=== PATIENT | female | born 1955 | race Caucasian/White ===

== ENCOUNTER → 2023-11-26 | Outpatient (CLI) | payer MEDICARE, OTHER, SELFPAY ==
--- NOTE | 2023-11-26 16:40 | RAD_ITS ---
STUDY: X-RAY CHEST REASON FOR EXAM: Female, 68 years old. Shortness of breath. TECHNIQUE: Frontal and lateral views of the chest. COMPARISON: None. FINDINGS: Low volume inspiration with elevation of the right hemidiaphragm and with bibasilar atelectasis, right greater than left. There is no demonstrated pleural abnormality. Borderline cardiomegaly unchanged. Normal mediastinum and ana. Normal visualized pulmonary arteries. Mild aortic tortuosity. Thoracic osteopenia with diffuse spondylosis. Normal visualized ribs, clavicles, and shoulders. No abnormality of the visualized soft tissue structures of the upper abdomen. RAD/Chest PA and Lateral IMPRESSION: Borderline cardiomegaly, low volume inspiration with right lower lobe basilar atelectasis. No active or acute cardiopulmonary disease. Electronically Signed: Geovanny Paul MD at 10:34 EDT ,
== END | disposition home or self-care (01) ==
LOC: MTRAD 16:38
PROVIDERS: PCP Nurse Practitioner Family; Referring Provider Internal Medicine Pulmonary Disease; Visit Provider Internal Medicine Pulmonary Disease
DX: R06.02 Shortness of breath (principal)
CPT/HCPCS: 71046

== ENCOUNTER → 2024-01-02 | Outpatient (CLI) | payer MEDICARE, OTHER, SELFPAY ==
--- NOTE | 2024-01-02 11:03 | RAD_ITS ---
PROCEDURE: Sniff test. DATE OF EXAMINATION: January 02, 2024. INDICATION: Female, 68 years old. Shortness of breath. Dyspnea on exertion. FLUOROSCOPY TIME (if supplied): (22 seconds) minutes/seconds. RAD/Chest Sniff Test Fluoro Only IMPRESSION: There is normal excursions of the right and left hemidiaphragms. Electronically Signed: Ramos Claudio MD at 13:42 EDT ,
== END | disposition home or self-care (01) ==
LOC: RAD 10:59
PROVIDERS: PCP Nurse Practitioner Family; Referring Provider Internal Medicine Pulmonary Disease; Visit Provider Internal Medicine Pulmonary Disease
DX: J98.6 Disorders of diaphragm (principal)
CPT/HCPCS: 76000

== ENCOUNTER → 2024-02-04 | Outpatient (CLI) | payer MEDICARE, OTHER, SELFPAY | END | disposition home or self-care (01) | LOC: PSN 07:51 | PROVIDERS: PCP Nurse Practitioner Family; Referring Provider Internal Medicine Pulmonary Disease; Visit Provider Internal Medicine Pulmonary Disease | DX: R06.02 Shortness of breath (principal) | CPT/HCPCS: 94060; 94726; 94729; 97162 ==

== ENCOUNTER → 2024-02-09 | Outpatient (CLI) | payer MEDICARE, OTHER, SELFPAY ==
[2024-02-09 13:02] VITALS: PULSE 101; PULSE 104; PULSE 76; PULSE 80; PULSE 86; PULSE 94; PULSE 99; O2SAT 91; O2SAT 92; O2SAT 93; O2SAT 94; O2SAT 95; O2SAT 97
--- NOTE | 2024-02-12 09:49 | PCM.PSN.6M ---
PSN 6 Minute Walk Test 6 Minute Walk Test 6 Minute Walk Test: 6 Minute Walk Test PSN:6-Minute Walk Test Start: 02/09/24 13:02 Freq: Status: Active Protocol: [id number].6MINW Document 02/09/24 13:02 ANDRIA (Rec: 02/09/24 13:04 ANDRIA [id number]) 6 Minute Walk Test Date Performed 02/09/24 Time Performed 12:00 Height 5 ft 4 in Weight: 307 lb Weight in Pounds 307.[address]: Mayco Vyas V Assistive device used: None Pre-test Oxygen Delivery Method Room Air Pulse Ox (%) 97 Pulse Rate (60-100 beats/min) 76 Dyspnea Kirstin Scale (0-10) 0 Exertion Kirstin Scale (6-20) 6 1st minute Oxygen Delivery Method Room Air Pulse Ox (%) 95 Pulse Rate (60-100 beats/min) 86 2nd minute Oxygen Delivery Method Room Air Pulse Ox (%) 94 Pulse Rate (60-100 beats/min) 94 3rd minute Oxygen Delivery Method Room Air Pulse Ox (%) 93 Pulse Rate (60-100 beats/min) 99 Number of Rests Taken 1 4th minute Oxygen Delivery Method Room Air Pulse Ox (%) 92 Pulse Rate (60-100 beats/min) 94 5th minute Oxygen Delivery Method Room Air Pulse Ox (%) 91 Pulse Rate (60-100 beats/min) 101 H 6th minute Oxygen Delivery Method Room Air Pulse Ox (%) 91 Pulse Rate (60-100 beats/min) 104 H Dyspnea Kirstin Scale (0-10) 5 Exertion Kirstin Scale (6-20) 14 Post-test Oxygen Delivery Method Room Air Pulse Ox (%) 97 Pulse Rate (60-100 beats/min) 80 Full Laps Walked 10 Partial Lap, Number of Tiles Walked 0 Total Distance Walked (ft) 590 Interpretation Interpretation: The patient ambulated 590 feet over the course of 6 minutes beginning on room air without assistive devices or breaks. Pretesting oxygen saturation was noted to be 97% on room air. With ambulation, the [place] oxygen saturation was 91%. This testing indicated the presence of impaired walk distance and significant exertional oxygen desaturation, consistent with a pulmonary limitation to exercise tolerance. Recommendations Recommendations: There is no indication for the use of supplemental oxygen at this time. However, post interval follow-up was recommended, given the degree of oxygen desaturation noted during the study.
== END | disposition home or self-care (01) ==
LOC: PSN 11:42
PROVIDERS: PCP Nurse Practitioner Family; Referring Provider Internal Medicine Pulmonary Disease; Visit Provider Internal Medicine Pulmonary Disease
DX: R06.02 Shortness of breath (principal)
CPT/HCPCS: 94618

== ENCOUNTER → 2024-03-24 | Outpatient (CLI) | payer MEDICARE, OTHER, SELFPAY ==
[2024-03-24 17:41] LABS: BNP,B-Type NATRIURETIC PEPTIDE 111.5 pg/mL (0-100)
== END | disposition home or self-care (01) ==
LOC: LAB 16:18
PROVIDERS: PCP Nurse Practitioner Family; Referring Provider Internal Medicine Cardiovascular Disease; Visit Provider Internal Medicine Cardiovascular Disease
DX: R06.02 Shortness of breath (principal); R00.2 Palpitations
CPT/HCPCS: 36415; 83880; 84443

== ENCOUNTER → 2024-07-08 | Outpatient (CLI) | payer MEDICARE, OTHER, SELFPAY ==
[2024-07-08 15:30] LABS: Absolute Lymphocyte Count 1.68 X10^3/uL (0.83-4.51); Absolute Neutrophil Count 5.2 X10^3/uL (2.0-7.7); Basophil# 0.02 X10^3/uL; Basophil% 0.3 % (0-1); Eosinophil# 0.45 X10^3/uL; Eosinophils% 5.6 % (0-5); Hematocrit 34.4 % (37-47); Hemoglobin 10.8 g/dL (12.0-15.0); Lymphocyte # 1.68 X10^3/ul (0.83-4.51); Mean Corp Hgb Conc 31.4 g/dL (32-36); Mean Corpuscular Volume 92.2 fL (81-99); Mean Platelet Vol. 8.9 fl (6.2-12.0); Monocyte# 0.57 X10^3/uL; Monocyte% 7.1 % (0-10); NRBC Flagged by Analyzer 0 % (0-5); Neutrophil # 5.24 X10^3/uL (2.7-7.7); Neutrophil % 65.5 % (47-70); Platelet Count 220 K/mm3 (150-450); RBC Distribution Width CV 15.9 % (11.6-14.6); RBC Distribution Width SD 53.8 fl (35.1-43.9); Red Blood Count 3.73 M/mm3 (4.2-5.4)
[2024-07-08 15:39] LABS: Prothrombin Time (Protime)PT. 13.6 SECONDS (11.7-14.9)
[2024-07-08 15:40] LABS: Partial Thromboplast Time 25.7 Seconds (24.1-36.2)
[2024-07-08 16:24] LABS: Anion Gap 5 (5-15); BUN 29 mg/dL (7-18); BUN/Creat Ratio 22.5 RATIO (10-20); Calcium,Total 8.9 mg/dL (8.5-10.1); Chloride 104 mmol/L (98-107); Creatinine, Serum 1.29 mg/dL (0.55-1.02); EST Glomerular Filtration Rate 44 mL/min (>60); Est Glom Filt Rate - Afr Amer 53 mL/min (>60); Glucose 190 mg/dL (74-106); Potassium 3.7 mmol/L (3.5-5.1); Sodium Level 140 mmol/L (136-145)
== END | disposition home or self-care (01) ==
LOC: LAB 15:00
PROVIDERS: Referring Provider Physician Assistant Medical; Visit Provider Physician Assistant Medical
DX: R06.02 Shortness of breath (principal)
CPT/HCPCS: 36415; 80048; 85025; 85610; 85730

== ENCOUNTER 2024-07-20 06:30 | Day surgery (SDC) | payer MEDICARE, OTHER, SELFPAY ==
--- NOTE | 2024-07-17 06:18 | RAD_ITS ---
STUDY: XR Chest 2 Views 07/17/2024 6:22 AM REASON FOR EXAM: Female, 69 years old. [place] COMPARISON: 11/26/2023 TECHNIQUE: XR Chest 2 Views FINDINGS: There is no demonstrated pleural abnormality. Normal heart size. Normal mediastinum. Normal ana. Prominent appearing increased interstitial lung markings. Normal visualized pulmonary arteries. There is atherosclerotic calcification of the aortic arch with tortuosity. There are diffuse degenerative changes of the visualized thoracic spine. There is degenerative osteoarthritis of the bilateral shoulders. There are no acute findings of the upper abdomen. RAD/Chest PA and Lateral IMPRESSION: There are no acute findings. Electronically Signed: Home Gonzales MD at 17:18 EST ,
[2024-07-19 08:36] VITALS: BMI 54.3
--- NOTE | 2024-07-20 08:35 | CL.D_ITS ---
Patient Name: KERMIT GILMAN Study Date: 07/20/2024 Performing: Aaron Barreto MD Ht: 64 inches 162.56 cm : 1955 Wt: 317 lbs 143.79 kg Age: 69 Gender: female BSA: 2.38 PROCEDURE(S) PERFORMED DC02-(95182)LHC/COR CLINICAL PROFILE AND INDICATIONS Heart Failure: None CONCLUSIONS Mild nonobstructive coronary disease with mild calcification, mitral calcification noted. RECOMMENDATIONS Medical therapy Will recommend VALENTIN to further evaluate the mitral valve to exclude any significant mitral stenosis. DESCRIPTION OF PROCEDURE The patient arrived to the procedure lab. The risks and benefits of the procedure as well as a full description of our services here and current unavailability of surgical backup were fully explained to the patient and/or their significant other prior to the catheterization. The Timeout was completed, verifying the correct patient and procedure. The patient's procedural site was prepped and draped in the usual fashion. Local anesthetic was given subcutaneously to right radial region with Lidocaine 2%. Using a modified Seldinger technique, arterial access was obtained via the right radial artery, a 6Fr sheath was inserted. Left Coronary Artery selective angiography was performed in multiple views using a 5 Fr. 4.0 [place] catheter. Right Coronary Artery selective angiography was then performed in multiple views using a 5 Fr. JR 5 catheter.The arterial sheath was pulled and a TR Band was applied for hemostasis w/ 12ml air CORONARY ANGIOGRAPHY DOMINANCE: Right Dominant LEFT HEART ASSESSMENT Left Ventricular Ejection Fraction: by Echo 60 % Normal LV wall motion Normal Left Ventricular systolic function LEFT MAIN: Angiographically normal LEFT ANTERIOR DESCENDING ARTERY: Mild calcification MID LAD: 40 % Stenosis DIAGONAL 1: Ostial - 50 % Stenosis CIRCUMFLEX ARTERY: Mild luminal irregularities less than 30% RIGHT CORONARY ARTERY: Mild luminal irregularities less than 30% COMPLICATIONS No Complications PROCEDURE MEDICATIONS Versed 1 mg IV Fentanyl 50 mcg IV Oxygen: 2 L/min via nasal cannula Aspirin (325mg) 1 Tabs PO 07/20/2024 07:15:40 Benadryl 50 mg IV @ 07/20/2024 07:48:43 Heparin given IA 07/20/2024 08:03:35 Solu-medrol 125 mg IV 07/20/2024 07:48:39 SUMMARY OF HEMODYNAMIC DATA Time AIR REST ECG 07:20:37 AO 143/72 (107) SA 08:10:38 Signed By Aaron Barreto MD On 07/20/2024 08:35:29 Signed By Aaron Barreto MD On 07/20/2024 08:35:14 Aaron Barreto MD
== END 2024-07-20 10:45 | disposition home or self-care (01) ==
PROVIDERS: Referring Provider Internal Medicine Cardiovascular Disease; Visit Provider Internal Medicine Cardiovascular Disease
DX: I25.10 Atherosclerotic heart disease of native coronary artery without angina pectoris (principal); I27.20 Pulmonary hypertension, unspecified; Z79.4 Long term (current) use of insulin; E11.9 Type 2 diabetes mellitus without complications; Z79.899 Other long term (current) drug therapy; Z79.84 Long term (current) use of oral hypoglycemic drugs; I10 Essential (primary) hypertension; E78.5 Hyperlipidemia, unspecified; I05.9 Rheumatic mitral valve disease, unspecified
CPT/HCPCS: 71046; 93454; 99152; 99153; Q9967; C1769; C1894

== ENCOUNTER → 2024-08-02 | Outpatient (CLI) | payer MEDICARE, OTHER, SELFPAY ==
--- NOTE | 2024-08-02 09:55 | ECHOTEE_ITS ---
Reason For Study: DYSPNEA Medication VALENTIN probe 6VT-D (SN [id number]) passed without difficulty. No complications were noted. Cetacaine Topical Pollard given X3 orally. Versed 2 mg given slow IVP. Fentanyl 50 mcg given slow IVP. Performed a rapid injection of agitated mix of 9 cc saline and 1cc air to assess for atrial septal defect. Left Ventricle Normal LV size. Left ventricular systolic function is normal. The left ventricular ejection fraction is 60 %. No regional wall motion abnormalities noted. Right Ventricle Normal RV size. Normal systolic function. Atria Bubble contrast study is negative for PFO/ASD. The left atrium is mildly enlarged. No thrombus is detected in the left atrial appendage. Normal right atrium. Mitral Valve Mild calcification is noted at the base of the posterior mitral valve leaflet. The anterior mitral is mobile with mild rheumatic appearance and with a pressure half-time of between 75 and 83 ms at a heart rate of 81 to 86 bpm in sinus rhythm resulting in a calculated mitral valve area of 2.6 to 2.9 cm??. Tricuspid Valve Normal tricuspid valve. Mild tricuspid valve insufficiency. Aortic Valve Trisinus/trileaflet aortic valve. Mild focal aortic valve calcification. Mild (1+) aortic valve insufficiency. Pulmonic Valve Normal pulmonic valve. Vessels Normal aortic root. Normal arch. The pulmonary artery is normal size. Pericardium No pericardial effusion. Doppler Measurements & Calculations MV V2 max: 192.0 cm/sec MV max P.8 mmHg MV V2 mean: 148.5 cm/sec MV mean P.2 mmHg MV V2 VTI: 47.0 cm ECHO/Echo Transesophageal (VALENTIN) Interpretation Summary Normal LV size. Left ventricular systolic function is normal. The left ventricular ejection fraction is 60 %. The left atrium is mildly enlarged. Bubble contrast study is negative for PFO/ASD. Mild calcification is noted at the base of the posterior mitral valve leaflet. The anterior mitral is mobile with mild rheumatic appearance and with a pressur e half-time of between 75 and 83 ms at a heart rate of 81 to 86 bpm in sinus rhythm resulting in a calculated mitral valve area of 2.6 to 2.9 cm?? Above is suggestive of mild to moderate mitral stenosis. Ordering Physician: Aidee Jacob Referring Physician: Aidee Jacob Performed By: Radha Dickinson RDCS
== END | disposition home or self-care (01) ==
LOC: CVS 09:52
PROVIDERS: Referring Provider Physician Assistant Medical; Visit Provider Physician Assistant Medical
DX: I34.81 Nonrheumatic mitral (valve) annulus calcification (principal); R19.02 Left upper quadrant abdominal swelling, mass and lump; Z87.440 Personal history of urinary (tract) infections
CPT/HCPCS: 93312; 93320; 93325; A4216

== ENCOUNTER → 2024-10-25 | Outpatient (CLI) | payer MEDICARE, OTHER, SELFPAY ==
--- NOTE | 2024-10-25 07:32 | ECHOD_ITS ---
Reason For Study Reason For Study: ARSALAN/PHTN Procedure This was a 2D Doppler, Color Flow transthoracic echocardiogram. The study was technically difficult. Definity deferred due to pulmonary pressure. Exam performed in department. Left Ventricle Normal LV size. Left ventricular systolic function is normal. No regional wall motion abnormalities noted. Right Ventricle Normal RV size. Mild to moderate global right ventricular systolic dysfunction. Atria The left atrium is mildly enlarged. Normal right atrium. Mitral Valve There is moderate mitral annular calcification. Mild diffuse mitral valve calcification. Mild-Moderate (1-2+) eccentric mitral valve insufficiency. Tricuspid Valve Normal tricuspid valve. Moderately severe (3+) eccentric tricuspid valve insufficiency. Pulmonary artery systolic pressure is 80 mmHg. Aortic Valve Trisinus/trileaflet aortic valve. Mild focal aortic valve calcification. Pulmonic Valve Normal pulmonic valve. Great Vessels Normal aortic root. The pulmonary artery is normal size. Inferior vena cava collapse with respiration. Pericardium/Pleural No pericardial effusion. MMode/2D Measurements & Calculations LVOT diam: 2.0 cm Ao root diam: 3.6 cm LAV(MOD-sp4): 65.0 ml LVOT area: 3.1 cm2 LA dimension(2D): 4.7 cm LA A4 area: 23.2 cm2 RA A4 area: 12.0 cm2 Time Measurements MV dec time: 0.28 sec Doppler Measurements & Calculations MV E max paul: 167.7 cm/sec Lat Peak E' Paul: 9.8 cm/sec Med Peak E' Paul: 7.7 cm/sec MV A max paul: 131.4 cm/sec E/E' lat: 17.1 E/E' med: 21.7 MV E/A: 1.3 MV V2 max: 188.2 cm/sec MV dec slope: 602.4 cm/sec2 Ao V2 max: 194.1 cm/sec MV max P.3 mmHg Ao max P.1 mmHg MV V2 mean: 118.7 cm/sec Ao V2 mean: 140.0 cm/sec MV mean P.2 mmHg Ao mean P.9 mmHg MV V2 VTI: 59.6 cm Ao V2 VTI: 51.1 cm PA V2 max: 147.0 cm/sec TR max paul: 430.6 cm/sec PA V2 mean: 92.8 cm/sec TR max P.2 mmHg ECHO/Echo Complete Interpretation Summary Normal LV size. Left ventricular systolic function is normal. The left atrium is mildly enlarged. Moderately severe (3+) eccentric tricuspid valve insufficiency. There is moderate mitral annular calcification. Mild-Moderate (1-2+) eccentric mitral valve insufficiency. Ordering Physician: Mayco Vyas V Referring Physician: Mayco Vyas V Performed By: Isatu Ahmadi RCS
== END | disposition home or self-care (01) ==
LOC: CVS 07:31
PROVIDERS: PCP Student in an Organized Health Care Education/Training Program; Referring Provider Internal Medicine Pulmonary Disease; Visit Provider Internal Medicine Pulmonary Disease
DX: I27.20 Pulmonary hypertension, unspecified (principal); G47.33 Obstructive sleep apnea (adult) (pediatric)
CPT/HCPCS: 93306

== ENCOUNTER → 2024-12-24 | Outpatient (CLI) | payer MEDICARE, OTHER, SELFPAY ==
[2024-12-24 15:24] LABS: Absolute Lymphocyte Count 2.25 X10^3/uL (0.83-4.51); Absolute Neutrophil Count 8.1 X10^3/uL (2.0-7.7); Basophil# 0.03 X10^3/uL; Basophil% 0.3 % (0-1); Eosinophil# 0.44 X10^3/uL; Eosinophils% 3.8 % (0-5); Hematocrit 32.6 % (37-47); Hemoglobin 10.3 g/dL (12.0-15.0); Lymphocyte # 2.25 X10^3/ul (0.83-4.51); Lymphocyte % 19.3 % (19-41); Mean Corp Hgb Conc 31.6 g/dL (32-36); Mean Corpuscular Hgb 28.8 pg (27.0-32.0); Mean Corpuscular Volume 91.1 fL (81-99); Mean Platelet Vol. 9.3 fl (6.2-12.0); Monocyte# 0.75 X10^3/uL; Monocyte% 6.4 % (0-10); NRBC Flagged by Analyzer 0 % (0-5); Neutrophil # 8.11 X10^3/uL (2.7-7.7); Neutrophil % 69.7 % (47-70); Platelet Count 267 K/mm3 (150-450); RBC Distribution Width CV 15.8 % (11.6-14.6); Red Blood Count 3.58 M/mm3 (4.2-5.4); White Blood Count 11.6 K/mm3 (4.4-11.0)
[2024-12-24 17:08] LABS: Anion Gap 13 (5-15); BUN 29 mg/dL (4-19); BUN/Creat Ratio 23.2 RATIO (10-20); Calcium,Total 9.1 mg/dL (7.6-11.0); Carbon Dioxide 21.6 mmol/L (21.0-32.0); Chloride 104 mmol/L (98-108); Creatinine, Serum 1.25 mg/dL (0.70-1.20); EST Glomerular Filtration Rate 47 (>60); Glucose 183 mg/dL (70-99); Potassium 4.7 mmol/L (3.3-5.1); Sodium Level 138 mmol/L (133-145)
== END | disposition home or self-care (01) ==
PROVIDERS: PCP Student in an Organized Health Care Education/Training Program; Referring Provider Physician Assistant Medical; Visit Provider Physician Assistant Medical
DX: I34.81 Nonrheumatic mitral (valve) annulus calcification (principal); I10 Essential (primary) hypertension; I07.1 Rheumatic tricuspid insufficiency; R06.02 Shortness of breath
CPT/HCPCS: 36415; 80048; 85025

== ENCOUNTER → 2025-06-03 | Outpatient (CLI) | payer MEDICARE, OTHER, SELFPAY ==
[2025-06-03 12:49] LABS: Hematocrit 35.4 % (37-47); Hemoglobin 11.3 g/dL (12.0-15.0); Immature Granulocytes Count 0.050 X10^3/uL (0.0-0.0); Mean Corp Hgb Conc 31.9 g/dL (32-36); Mean Corpuscular Volume 94.1 fL (81-99); Mean Platelet Vol. 9.1 fl (6.2-12.0); NRBC Flagged by Analyzer 0 % (0-5); Platelet Count 305 K/mm3 (150-450); RBC Distribution Width CV 14.7 % (11.6-14.6); RBC Distribution Width SD 51.2 fl (35.1-43.9); Red Blood Count 3.76 M/mm3 (4.2-5.4); White Blood Count 11.2 K/mm3 (4.4-11.0)
[2025-06-03 13:17] LABS: Iron 43 ug/dL (50-170); Iron Binding Capacity,Total 336 ug/dL (250-450); Iron Binding Capacity,Unsat 293 ug/dL (228-428)
== END | disposition home or self-care (01) ==
LOC: LAB 11:43
PROVIDERS: PCP Student in an Organized Health Care Education/Training Program; Referring Provider Physician Assistant Medical; Visit Provider Physician Assistant Medical
DX: D64.9 Anemia, unspecified (principal)
CPT/HCPCS: 36415; 83540; 83550; 85025

== ENCOUNTER → 2025-07-01 | Outpatient (CLI) | payer MEDICARE, OTHER, SELFPAY ==
--- NOTE | 2025-07-01 14:55 | ECHOD_ITS ---
Reason For Study : MURMUR Procedure This was a 2D Doppler, Color Flow transthoracic echocardiogram. The study was technically difficult. DEFINITY NOT USED DUE TO NO NURSE AVAILABLE FOR IV. The patient was scanned supine. Exam performed in department. Left Ventricle Normal LV size. The left ventricular ejection fraction is 60 %. No regional wall motion abnormalities noted. Right Ventricle Normal RV size. Normal systolic function. Atria Normal left atrium. Normal right atrium. Mitral Valve There is moderate to severe mitral annular calcification. Ossified mobile echogenic structure noted on the mitral annulus. Peak transmitral valve gradient 10 mmHg. Mean transmitral valve gradient 5 mmHg. Tricuspid Valve Normal tricuspid valve. Mild-Moderate (1-2+) tricuspid valve insufficiency. Pulmonary artery systolic pressure is 37 mmHg. Aortic Valve Trisinus/trileaflet aortic valve. Mild focal aortic valve calcification. Peak aortic valve gradient 26 mmHg. Mean aortic valve gradient 16 mmHg. Mild to moderate aortic stenosis. Pulmonic Valve The pulmonic valve is not well visualized. Great Vessels Normal aortic root. The pulmonary artery is normal size. Inferior vena cava collapse with respiration. Pericardium/Pleural No pericardial effusion. MMode/2D Measurements & Calculations LVIDd: 4.8 cm IVSd: 1.1 cm LVOT diam: 2.0 cm LVIDs: 3.5 cm LVPWd: 1.1 cm LVOT area: 3.3 cm2 RVDd: 3.6 cm FS: 27.9 % asc Aorta Diam: 3.5 cm LAV(MOD-bp): 65.8 ml LVAd ap4: 25.4 cm2 LAV(MOD-bp) Indexed: 28.1 ml/m2 LVLd ap4: 7.7 cm LAV(MOD-sp2): 59.7 ml EDV(MOD-sp4): 68.5 ml LAV(MOD-sp4): 64.1 ml EDV(sp4-el): 71.7 ml LVAs ap4: 13.1 cm2 LVLs ap4: 6.2 cm ESV(MOD-sp4): 24.2 ml ESV(sp4-el): 23.7 ml EF(MOD-sp4): 64.6 % EF(sp4-el): 67.0 % SV(MOD-sp4): 44.3 ml SV(sp4-el): 48.0 ml LA A4 area: 22.1 cm2 SI(MOD-sp4): 18.9 ml/m2 LA dimension(2D): 4.1 cm RA A4 area: 10.9 cm2 TAPSE: 1.8 cm Doppler Measurements & Calculations Lat Peak E' Paul: 8.3 cm/sec Med Peak E' Paul: 6.2 cm/sec MV V2 max: 160.6 cm/sec MV max P.4 mmHg MV V2 mean: 109.2 cm/sec MV mean P.2 mmHg MV V2 VTI: 46.1 cm MVA(VTI): 1.5 cm2 Ao V2 max: 254.5 cm/sec LV V1 max: 121.7 cm/sec SV(LVOT): 70.0 ml Ao max P.9 mmHg LV V1 max P.9 mmHg Ao V2 mean: 195.4 cm/sec LV V1 mean P.1 mmHg Ao mean P.3 mmHg LV V1 mean: 81.5 cm/sec Ao V2 VTI: 51.3 cm LV V1 VTI: 21.4 cm AV (velocity ratio): 0.42 HORACE(I,D): 1.4 cm2 HORACE(V,D): 1.6 cm2 PA V2 max: 111.2 cm/sec TR max paul: 286.8 cm/sec TR max P.9 mmHg ECHO/Echo Complete Interpretation Summary Normal LV size. The left ventricular ejection fraction is 60 %. There is moderate to severe mitral annular calcification. Mean transmitral valve gradient 5 mmHg. Mild focal aortic valve calcification. Mild to moderate aortic stenosis. Ordering Physician: Aidee Jacob Referring Physician: Kaitlynn Johnson Performed By: Sesar Gaston RDCS
== END | disposition home or self-care (01) ==
LOC: CVS 14:48
PROVIDERS: PCP Student in an Organized Health Care Education/Training Program; Referring Provider Physician Assistant Medical; Visit Provider Physician Assistant Medical
DX: I34.81 Nonrheumatic mitral (valve) annulus calcification (principal); R01.1 Cardiac murmur, unspecified
CPT/HCPCS: 93306; Q9957; A4216